=== PATIENT | female | born 1955 | race Caucasian/White ===

== ENCOUNTER 2020-07-30 21:51 | Emergency (ER) | payer OTHER, MEDICAID ==
[~2020-07-30] VITALS: Ht 154.9 cm; Wt 56.7 kg
--- NOTE | ~2020-07-30 | EMS ---
[facility] [address] [place] [address] EMS Patient Care Report Name: MARY PRIETO Room: [facility] Ayad#: [id number] Admission: 07/30/20 Attend Phys: Discharge: 07/30/20 Date of : 51 Report #: [id number] THIS REPORT FOR: //name// Report Transmitted: 08/01/2020 13:14 EMS Care Summary [facility] [place] Incident [id number] @ 07/30/2020 21:04 Incident Location [address] [place] [address] Patient Mary Prieto Female, 64 Years 1955 Patient Address [address] [address] [place] [address] Patient History Cerebral infarction, unspecified,Unspecified asthma,Hypothyroidism, unspecified,Anxiety disorder, unspecified,Hyperlipidemia,Other chronic pain,Chronic Obstructive Pulmonary Disease (COPD), Patient Allergies , Patient Medications Oxycodone, Chief Complaint Pain Disposition Transported No Lights/[place] Reason Falls Transported To [facility] Narrative Medic 322 was dispatched for a 911 call for a fall. medic 322 arrived on scene to find female subject laying in her bed talking to [facility]D. The patient stated [facility] [address] [place] [address] EMS Patient Care Report Name: MARY PRIETO Room: [facility] Ayad#: [id number] Admission: 07/30/20 Attend Phys: Discharge: 07/30/20 Date of : 51 Report #: [id number] that she fell yesterday off a stool and hurt her right ankle and her left wrist. She staed that she was not able to bear weight on her ankle. Mc Crenshaw started an assessment on the patient. Mc Crenshaw and IFD carried the patient to the [facility] and secured her using all the straps provided. The patient was transferred to the [facility] without difficulty. Mc Crenshaw transported the patient to the ambulance using the litter. Once in the back of the ambulance Mc Crenshaw continued her assessment on the patient. Jaclyn Olivares took a set of vitals on the patient about every ten to fifteen minutes. The patient rested comfortably on the litter during the transported. She wanted to be transported to [facility]. Mc Crenshaw arrived at [facility] and transported the patient to her room usnig the [facility]. The pateint was transferred to the hospital bed using the sheet slide maneuver. Mc Crenshaw gave a verbal report to the nurse, and transferred patient care to the nurse. HIPAA was signed by the pateint. Jaclyn Olivares EMT- P# [id number] Initial Vitals @21:21Pain: 04/26, @21:31Pain: 04/26, @21:21P: 81,R: 18,BP: 130/58,Revised Trauma: 8, @21:31P: 78,R: 18,BP: 125/62,Revised Trauma: 8, @21:21GCS: 15, @21:31GCS: 15, Assessments @21:13MENTAL:SKIN:HEENT:LUNG SOUNDS:ABDOMEN:PELVIS//GI:EXTREMITIES:PULSE:NEURO: Impression Headache Timeline :,Call Received 21:,Dispatch Notified 21:,Psap Call 21:04,Dispatched 21:04,En Route 21:10,On Scene 21:13,At Patient 21:21,Depart Scene 21:,BP: / M,PULSE: ,RR: R,SPO2: Ox,ETCO2: ,BG: ,PAIN: 10,GCS: , 21:21,BP: 130/58 M,PULSE: 81,RR: 18 R,SPO2: Ox,ETCO2: ,BG: ,PAIN: ,GCS: , 21:21,BP: / M,PULSE: ,RR: R,SPO2: Ox,ETCO2: ,BG: ,PAIN: ,GCS: 15, 21:31,BP: / M,PULSE: ,RR: R,SPO2: Ox,ETCO2: ,BG: ,PAIN: 10,GCS: , 21:31,BP: 125/62 M,PULSE: 78,RR: 18 R,SPO2: Ox,ETCO2: ,BG: ,PAIN: ,GCS: , 21:31,BP: / M,PULSE: ,RR: R,SPO2: Ox,ETCO2: ,BG: ,PAIN: ,GCS: 15, [place] [address] EMS Patient Care Report Name: NIRAVMARY Diamond Room: [facility] Lion#: [id number] Admission: 07/30/20 Attend Phys: Discharge: 07/30/20 Date of : 51 Report #: [id number] 21:46,At Destination 21:59,Call Closed Disclaimer [email or web address] Copyright 2020 [employer] This EMS Care Summary contains data elements from the applicable legal record (which may be displayed differently). It is designed to provide pertinent information for the following purposes: continuity of care, clinical quality, and state data reporting. The complete legal record is available to ED staff and administrators of the receiving hospital in [employer]'s Patient Tracker. All data is provided "as is."
[2020-07-30] MEDS ORDERED: OXYCODONE HCL E10 MG PO (22:00)
[2020-07-30] MEDS ORDERED: MELOXICAM15 MG PO (23:04)
[2020-07-30 23:33] VITALS: BP 127/74
== END 2020-07-30 23:35 | disposition home or self-care (01) ==
LOC: M.ERS 21:51
DX: S92.001A Unspecified fracture of right calcaneus, initial encounter for closed fracture (principal); Z88.5 Allergy status to narcotic agent; Z88.2 Allergy status to sulfonamides; Z88.8 Allergy status to other drugs, medicaments and biological substances; W18.39XA Other fall on same level, initial encounter; Y93.89 Activity, other specified; Y92.89 Other specified places as the place of occurrence of the external cause; Y99.8 Other external cause status